=== PATIENT | female | born 1995 | race Caucasian/White ===

== ENCOUNTER 2017-08-08 16:41 | Outpatient (CLI) | payer MEDICAID ==
[2017-08-08 18:05] LABS: ADD MAN DIFF? NO
[2017-08-08 18:10] LABS: WHITE BLOOD COUNT 8.1 10^3/ul (4.8-10.8)
[2017-08-08 18:10] LABS: BASOPHILS % 0.2 % (0.0-2.0); EOSINOPHILS # 0.1 10^3/ul (0.0-0.5); HEMOGLOBIN 12.1 g/dl (12.0-16.0); LYMPHOCYTES # 2.1 10^3/ul (0.8-2.9); LYMPHOCYTES % 25.8 % (15.0-51.0); MEAN CORPUSCULAR HEMOGLOBIN 27.3 pg (29.0-33.0); MEAN CORPUSCULAR HGB CONC 32.7 g/dl (32.0-37.0); MEAN CORPUSCULAR VOLUME 83.3 fl (82.0-101.0); MEAN PLATELET VOLUME 12.1 fl (7.4-10.4); MONOCYTE # 0.7 10^3/ul (0.3-0.9); MONOCYTES % 8.9 % (0.0-11.0); NEUTROPHIL # 5.2 10^3/ul (1.6-7.5); NEUTROPHILS % 63.6 % (39.0-77.0); PLATELET COUNT 264 10^3/UL (140-415); RED BLOOD COUNT 4.44 10^6/ul (4.20-5.40); RED CELL DISTRIBUTION WIDTH 12.9 % (11.5-14.5)
[2017-08-08 18:26] LABS: ADD UMIC YES; UR ASCORBIC ACID NEGATIVE (NEGATIVE); UR BACTERIA FEW /HPF (NONE SEEN); UR BILIRUBIN (Dip) NEGATIVE (NEGATIVE); UR BLOOD (Dip) NEGATIVE (NEGATIVE); UR CLARITY SLIGHTLY CLOUDY (CLEAR); UR COLOR YELLOW (YELLOW); UR GLUCOSE (Dip) NEGATIVE (NEGATIVE); UR KETONES (Dip) NEGATIVE (NEGATIVE); UR LEUKOCYTE ESTERASE (Dip) 3+ Leu/ul (NEGATIVE); UR NITRITE (Dip) NEGATIVE (NEGATIVE); UR RBC 1 /HPF (0-5); UR SPECIFIC GRAVITY (Dip) 1.017 (1.003-1.030); UR SQUAMOUS EPITHELIAL CELL FEW /HPF (FEW); UR TOTAL PROTEIN (Dip) NEGATIVE (NEGATIVE); UR UROBILINOGEN (Dip) NEGATIVE (NEGATIVE); UR WBC 18 /HPF (0-5)
[2017-08-08 18:32] LABS: ALANINE AMINOTRANSFERASE 41 IU/L (13-69); ALBUMIN 3.4 g/dl (3.3-4.9); ALBUMIN/GLOBULIN RATIO 0.87; ALKALINE PHOSPHATASE 309 IU/L (42-121); ANION GAP 16 (8-16); ASPARTATE AMINO TRANSFERASE 33 IU/L (15-46); BILIRUBIN,INDIRECT 0.1 mg/dl (0-1.1); BILIRUBIN,TOTAL 0.1 mg/dl (0.2-1.3); BLOOD UREA NITROGEN 14 mg/dl (7-20); CALCIUM 9.1 mg/dl (8.4-10.2); CARBON DIOXIDE 23 mmol/L (21-31); CHLORIDE 105 mmol/L (97-110); CREATININE 0.78 mg/dl (0.44-1.00); GLUCOSE 72 mg/dl (70-220); POTASSIUM 4.7 mmol/L (3.5-5.1); SODIUM 139 mmol/L (135-144); TOTAL PROTEIN 7.3 g/dl (6.1-8.1); URIC ACID 5.6 mg/dl (3.1-7.9)
[2017-08-08 19:28] LABS: INR 0.85; PARTIAL THROMBOPLASTIN TIME 29.2 Sec (25.0-35.0); PROTIME 11.7 Sec (11.9-14.9); PT RATIO 0.9
== END 2017-08-08 22:19 | disposition home or self-care (01) ==
LOC: OBT 16:41 → L-D 16:42 → OBT 22:19
DX: O26.893 Other specified pregnancy related conditions, third trimester (principal); P00.0 Newborn affected by maternal hypertensive disorders; Z3A.37 37 weeks gestation of pregnancy
CPT/HCPCS: 76815; 76818; 80053; 81001; 84560; 85025; 85610; 85730

== ENCOUNTER 2017-08-12 17:08 | Outpatient (CLI) | payer MEDICAID ==
[2017-08-12 18:53] LABS: ADD UMIC YES; UR ASCORBIC ACID NEGATIVE (NEGATIVE); UR BILIRUBIN (Dip) NEGATIVE (NEGATIVE); UR BLOOD (Dip) NEGATIVE (NEGATIVE); UR CLARITY CLEAR (CLEAR); UR COLOR YELLOW (YELLOW); UR GLUCOSE (Dip) NEGATIVE (NEGATIVE); UR KETONES (Dip) NEGATIVE (NEGATIVE); UR LEUKOCYTE ESTERASE (Dip) 1+ Leu/ul (NEGATIVE); UR NITRITE (Dip) NEGATIVE (NEGATIVE); UR RBC 0 /HPF (0-5); UR SPECIFIC GRAVITY (Dip) 1.013 (1.003-1.030); UR SQUAMOUS EPITHELIAL CELL FEW /HPF (FEW); UR TOTAL PROTEIN (Dip) NEGATIVE (NEGATIVE); UR UROBILINOGEN (Dip) NEGATIVE (NEGATIVE); UR WBC 5 /HPF (0-5)
[2017-08-12 19:56] LABS: ADD MAN DIFF? NO
[2017-08-12 20:03] LABS: BASOPHILS % 0.2 % (0.0-2.0); EOSINOPHILS # 0.1 10^3/ul (0.0-0.5); EOSINOPHILS % 1.3 % (0.0-7.0); HEMATOCRIT 34.1 % (37.0-47.0); HEMOGLOBIN 11.6 g/dl (12.0-16.0); LYMPHOCYTES # 2.1 10^3/ul (0.8-2.9); LYMPHOCYTES % 24.5 % (15.0-51.0); MEAN CORPUSCULAR VOLUME 82.4 fl (82.0-101.0); MEAN PLATELET VOLUME 11.4 fl (7.4-10.4); MONOCYTE # 0.7 10^3/ul (0.3-0.9); MONOCYTES % 7.5 % (0.0-11.0); NEUTROPHIL # 5.7 10^3/ul (1.6-7.5); PLATELET COUNT 235 10^3/UL (140-415); RED BLOOD COUNT 4.14 10^6/ul (4.20-5.40); RED CELL DISTRIBUTION WIDTH 13.1 % (11.5-14.5)
[2017-08-12 20:03] LABS: WHITE BLOOD COUNT 8.7 10^3/ul (4.8-10.8)
[2017-08-12 20:16] LABS: ALANINE AMINOTRANSFERASE 38 IU/L (13-69); ALBUMIN 3.4 g/dl (3.3-4.9); ALBUMIN/GLOBULIN RATIO 0.97; ALKALINE PHOSPHATASE 299 IU/L (42-121); ANION GAP 15 (8-16); ASPARTATE AMINO TRANSFERASE 30 IU/L (15-46); BILIRUBIN,INDIRECT 0.1 mg/dl (0-1.1); BILIRUBIN,TOTAL 0.1 mg/dl (0.2-1.3); BLOOD UREA NITROGEN 18 mg/dl (7-20); CARBON DIOXIDE 23 mmol/L (21-31); CHLORIDE 105 mmol/L (97-110); CREATININE 1.06 mg/dl (0.44-1.00); GLUCOSE 81 mg/dl (70-220); POTASSIUM 4.8 mmol/L (3.5-5.1); SODIUM 138 mmol/L (135-144); TOTAL PROTEIN 6.9 g/dl (6.1-8.1); URIC ACID 6.2 mg/dl (3.1-7.9)
== END 2017-08-12 22:30 | disposition home or self-care (01) ==
LOC: OBT 17:08 → L-D 17:09 → OBT 22:30
DX: O13.3 Gestational [pregnancy-induced] hypertension without significant proteinuria, third trimester (principal); Z3A.38 38 weeks gestation of pregnancy
CPT/HCPCS: 76818; 80053; 81001; 84560; 85025

== ENCOUNTER 2017-08-19 16:28 | Inpatient (IN) | payer MEDICAID ==
[2017-08-19] MEDS ORDERED: BUTORPHANOL 1 MG INJ IV (17:30)
[2017-08-19] MEDS ORDERED: METHYLERGONOVINE 0.2 MG INJ IM (17:30)
[2017-08-19] MEDS ORDERED: IBUPROFEN 600 MG TAB PO (17:30)
[2017-08-19] MEDS ORDERED: MISOPROSTOL 200 MCG TAB PR (17:30)
[2017-08-19] MEDS ORDERED: OXYTOCIN 30 UNITS/LR 500 ML IV ×2 (17:30→19:00)
[2017-08-19] MEDS ORDERED: LIDOCAINE 1% (MPF) 30 ML INJ INJ (17:30)
[2017-08-19] MEDS ORDERED: BUTORPHANOL 2 MG INJ IV (17:30)
[2017-08-19 17:42] LABS: ADD MAN DIFF? NO
[2017-08-19 17:46] LABS: WHITE BLOOD COUNT 7.8 10^3/ul (4.8-10.8)
[2017-08-19 17:46] LABS: BASOPHILS % 0.4 % (0.0-2.0); EOSINOPHILS # 0.1 10^3/ul (0.0-0.5); EOSINOPHILS % 0.9 % (0.0-7.0); HEMOGLOBIN 11.9 g/dl (12.0-16.0); LYMPHOCYTES % 26.1 % (15.0-51.0); MEAN CORPUSCULAR HEMOGLOBIN 28.1 pg (29.0-33.0); MEAN CORPUSCULAR VOLUME 82.7 fl (82.0-101.0); MONOCYTE # 0.6 10^3/ul (0.3-0.9); MONOCYTES % 8.2 % (0.0-11.0); NEUTROPHILS % 63.9 % (39.0-77.0); PLATELET COUNT 254 10^3/UL (140-415); RED BLOOD COUNT 4.23 10^6/ul (4.20-5.40); RED CELL DISTRIBUTION WIDTH 13.5 % (11.5-14.5)
[2017-08-19 18:03] LABS: INR 0.76; PROTIME 10.7 Sec (11.9-14.9); PT RATIO 0.8
[2017-08-19] MEDS: LACTATED RINGER'S 1,000 ML IV (18:06)
[2017-08-19 18:16] LABS: ALANINE AMINOTRANSFERASE 39 IU/L (13-69); ALBUMIN 3.4 g/dl (3.3-4.9); ALBUMIN/GLOBULIN RATIO 0.94; ALKALINE PHOSPHATASE 304 IU/L (42-121); ANION GAP 15 (8-16); ASPARTATE AMINO TRANSFERASE 33 IU/L (15-46); BILIRUBIN,INDIRECT 0.1 mg/dl (0-1.1); BILIRUBIN,TOTAL 0.1 mg/dl (0.2-1.3); BLOOD UREA NITROGEN 16 mg/dl (7-20); CALCIUM 8.7 mg/dl (8.4-10.2); CARBON DIOXIDE 23 mmol/L (21-31); CHLORIDE 105 mmol/L (97-110); CREATININE 0.89 mg/dl (0.44-1.00); GLUCOSE 81 mg/dl (70-220); POTASSIUM 4.2 mmol/L (3.5-5.1); SODIUM 139 mmol/L (135-144); URIC ACID 5.8 mg/dl (3.1-7.9)
[2017-08-19] MEDS: DINOPROSTONE 10 MG VAG SUPP VAG ×2 (18:38→18:45)
[2017-08-19 18:39] LABS: HEPATITIS B SURFACE ANTIGEN NEGATIVE (NEGATIVE)
[2017-08-19 20:26] LABS: FIBRIN SPLIT PRODUCT <10 ug/ml (<10)
[2017-08-19] MEDS: MINERAL OIL LIGHT 10 ML VIAL TOP (21:07)
[2017-08-19] MEDS: OXYCODONE/ACETAMINOPHEN (5/325) TAB PO (21:38)
[2017-08-19] MEDS: OXYTOCIN 30 UNITS/LR 500 ML IV ×2 (21:40→21:41)
[2017-08-19] MEDS: CARBOPROST 250 MCG INJ IM (22:16)
[2017-08-20] MEDS: CARBOPROST 250 MCG INJ IM (00:34)
[2017-08-20] MEDS ORDERED: MAGNESIUM SULFATE 4 GM/100 ML 100 ML (01:19)
[2017-08-20] MEDS: MAGNESIUM SULFATE 4 GM/100 ML 100 ML IV (01:41)
[2017-08-20] MEDS: MAGNESIUM SULFATE 20 GM/500 ML 500 ML IV ×2 (02:00→10:39)
[2017-08-20 02:05] LABS: ADD UMIC YES; UR ASCORBIC ACID NEGATIVE (NEGATIVE); UR BILIRUBIN (Dip) NEGATIVE (NEGATIVE); UR BLOOD (Dip) 1+ mg/dL (NEGATIVE); UR CLARITY CLEAR (CLEAR); UR COLOR YELLOW (YELLOW); UR GLUCOSE (Dip) NEGATIVE (NEGATIVE); UR KETONES (Dip) NEGATIVE (NEGATIVE); UR LEUKOCYTE ESTERASE (Dip) NEGATIVE Leu/ul (NEGATIVE); UR MUCUS FEW /HPF (NONE SEEN); UR NITRITE (Dip) NEGATIVE (NEGATIVE); UR RBC 15 /HPF (0-5); UR SPECIFIC GRAVITY (Dip) 1.019 (1.003-1.030); UR TOTAL PROTEIN (Dip) 1+ mg/dl (NEGATIVE); UR UROBILINOGEN (Dip) NEGATIVE (NEGATIVE); UR WBC 1 /HPF (0-5)
[2017-08-20] MEDS: LACTATED RINGER'S 1,000 ML IV ×3 (02:29→15:27)
[2017-08-20] MEDS ORDERED: BENZOCAINE 20% 56 ML SPRAY TOP (03:30)
[2017-08-20] MEDS ORDERED: ZOLPIDEM 5 MG TAB PO (03:30)
[2017-08-20] MEDS ORDERED: CARBOPROST 250 MCG INJ IM (03:30)
[2017-08-20] MEDS ORDERED: OXYCODONE/ASPIRIN (4.88/325) TAB PO ×2 (03:30)
[2017-08-20] MEDS ORDERED: MISOPROSTOL 200 MCG TAB PR (03:30)
[2017-08-20] MEDS ORDERED: OXYTOCIN 30 UNITS/LR 500 ML IV (03:30)
[2017-08-20] MEDS ORDERED: METHYLERGONOVINE 0.2 MG INJ IM (03:30)
[2017-08-20 04:35] LABS: HEPATITIS B SURFACE ANTIGEN NEGATIVE (NEGATIVE)
[2017-08-20] MEDS: WITCH HAZEL/GLYCERIN PAD PR (05:26)
[2017-08-20] MEDS: LANOLIN 7 GM TUBE TOP (05:26)
[2017-08-20] MEDS: IBUPROFEN 600 MG TAB PO ×3 (05:26→17:38)
[2017-08-20 08:03] LABS: ADD MAN DIFF? NO
[2017-08-20 08:10] LABS: BASOPHILS % 0.2 % (0.0-2.0); EOSINOPHILS % 0.1 % (0.0-7.0); HEMATOCRIT 32.2 % (37.0-47.0); LYMPHOCYTES # 2.1 10^3/ul (0.8-2.9); LYMPHOCYTES % 13.3 % (15.0-51.0); MEAN CORPUSCULAR HEMOGLOBIN 28.2 pg (29.0-33.0); MEAN CORPUSCULAR HGB CONC 34.2 g/dl (32.0-37.0); MEAN CORPUSCULAR VOLUME 82.6 fl (82.0-101.0); MEAN PLATELET VOLUME 11.5 fl (7.4-10.4); MONOCYTE # 1.5 10^3/ul (0.3-0.9); MONOCYTES % 9.1 % (0.0-11.0); NEUTROPHIL # 12.3 10^3/ul (1.6-7.5); NEUTROPHILS % 76.7 % (39.0-77.0); PLATELET COUNT 232 10^3/UL (140-415); RED CELL DISTRIBUTION WIDTH 13.5 % (11.5-14.5)
[2017-08-20 08:53] LABS: MAGNESIUM 5.9 mg/dl (1.7-2.5)
[2017-08-20] MEDS: SENNA/DOCUSATE NA (8.6MG/50MG) TAB PO ×2 (10:20→21:21)
[2017-08-20 14:42] LABS: MAGNESIUM 6.8 mg/dl (1.7-2.5)
[2017-08-20 15:11] LABS: RAPID PLASMA REAGIN NONREACTIVE (NR)
[2017-08-20] MEDS: CEPHALEXIN 500 MG CAP PO (17:38)
[2017-08-21] MEDS: CEPHALEXIN 500 MG CAP PO ×3 (00:13→12:22)
[2017-08-21] MEDS: IBUPROFEN 600 MG TAB PO ×3 (00:13→12:22)
[2017-08-21] MEDS: LACTATED RINGER'S 1,000 ML IV (04:40)
[2017-08-21] MEDS: DIPHTH/TET/ACEL PERTUSS (ADULT) 0.5 ML VIAL IM* (09:00)
[2017-08-21] MEDS: SENNA/DOCUSATE NA (8.6MG/50MG) TAB PO (09:00)
[2017-08-21 10:51] LABS: ADD MAN DIFF? NO
[2017-08-21 10:52] LABS: BASOPHILS % 0.2 % (0.0-2.0); EOSINOPHILS # 0.1 10^3/ul (0.0-0.5); EOSINOPHILS % 0.9 % (0.0-7.0); HEMATOCRIT 30.1 % (37.0-47.0); HEMOGLOBIN 9.9 g/dl (12.0-16.0); LYMPHOCYTES # 2.4 10^3/ul (0.8-2.9); LYMPHOCYTES % 26.2 % (15.0-51.0); MEAN CORPUSCULAR HGB CONC 32.9 g/dl (32.0-37.0); MEAN CORPUSCULAR VOLUME 85.3 fl (82.0-101.0); MEAN PLATELET VOLUME 10.8 fl (7.4-10.4); MONOCYTE # 0.7 10^3/ul (0.3-0.9); MONOCYTES % 7.3 % (0.0-11.0); NEUTROPHIL # 5.9 10^3/ul (1.6-7.5); NEUTROPHILS % 64.7 % (39.0-77.0); PLATELET COUNT 217 10^3/UL (140-415); RED BLOOD COUNT 3.53 10^6/ul (4.20-5.40); RED CELL DISTRIBUTION WIDTH 14.1 % (11.5-14.5)
== END 2017-08-21 14:20 | disposition home or self-care (01) | DRG 775 ==
LOC: L-D 16:28 → PP1 08-20 02:57
PROVIDERS: Obstetrics & Gynecology
PROC: 10E0XZZ Delivery of Products of Conception, External Approach (ICD-10-PCS; principal; 2017-08-19)
PROC: 3E0P7VZ Introduction of Hormone into Female Reproductive, Via Natural or Artificial Opening (ICD-10-PCS; 2017-08-19)
DX: O69.1XX0 Labor and delivery complicated by cord around neck, with compression, not applicable or unspecified (principal); O70.0 First degree perineal laceration during delivery; Z3A.39 39 weeks gestation of pregnancy; Z37.0 Single live birth
CPT/HCPCS: 76815; 80053; 81001; 83735; 84560; 85025; 85362; 85384; 85610; 85730; 86592; 86850; 86900; 86901; 87340; 99464

== ENCOUNTER 2018-04-18 15:21 | Emergency (ER) | payer MEDICAID | END 2018-04-18 16:57 | disposition home or self-care (01) | LOC: FTE 15:21 | DX: L30.9 Dermatitis, unspecified (principal) | CPT/HCPCS: 76536; 99284-25 ==